=== PATIENT | female | born 1990 | race Caucasian/White ===

== ENCOUNTER 2017-03-28 20:45 | Emergency (ER) | payer OTHER ==
[~2017-03-28] VITALS: Ht 154.9 cm; Wt 65.3 kg
[~2017-03-28 20:45] MED LIST: JENCYCLA0.35 MG PO; NEXPLANON68 MG SC; PERCOCET 5/31 TABLET PO; TORADOL10 MG PO; WELLBUTRIN75 MG PO; ZANTAC150 MG PO; ZOFRAN4 MG PO
[2017-03-28] MEDS ORDERED: ULTRAM50 MG PO (21:24)
[2017-03-28 21:44] VITALS: BP 117/84
== END 2017-03-28 21:45 | disposition home or self-care (01) ==
LOC: EME 20:45
DX: K08.89 Other specified disorders of teeth and supporting structures (principal); K02.9 Dental caries, unspecified; F17.200 Nicotine dependence, unspecified, uncomplicated
CPT/HCPCS: 99281; 99283; J1885

== ENCOUNTER → 2017-05-16 | Emergency (ER) | payer OTHER ==
[~2017-05-16] VITALS: Ht 154.9 cm; Wt 64.2 kg
[~2017-05-16] MED LIST changes: +AMOXICILLIN875 MG PO; +MOTRIN600 MG PO; +TRAMADOL HCL50 MG PO; +ULTRAM50 MG PO
[2017-05-16 20:28] VITALS: BP 134/70
== END | disposition home or self-care (01) ==
LOC: EME 18:07
DX: K08.89 Other specified disorders of teeth and supporting structures (principal); F17.200 Nicotine dependence, unspecified, uncomplicated; F32.9 Major depressive disorder, single episode, unspecified; K21.9 Gastro-esophageal reflux disease without esophagitis; K58.9 Irritable bowel syndrome, unspecified
CPT/HCPCS: 99281; 99284